=== PATIENT | male | born 2000 | race Asian ===

== ENCOUNTER 2022-02-02 08:58 | Emergency (ER) | payer OTHER ==
[~2022-02-02] VITALS: Ht 167.6 cm; Wt 63.0 kg
[2022-02-02] MEDS ORDERED: LIDOCAINE 2% MDV 20ML VIAL SC ONE (11:55)
[2022-02-02 12:30] VITALS: BP 110/67
== END 2022-02-02 12:31 | disposition home or self-care (01) ==
LOC: M ED 08:58
DX: S61.411A Laceration without foreign body of right hand, initial encounter (principal); W26.0XXA Contact with knife, initial encounter; F17.200 Nicotine dependence, unspecified, uncomplicated; Y92.009 Unspecified place in unspecified non-institutional (private) residence as the place of occurrence of the external cause; Y93.9 Activity, unspecified; Y99.9 Unspecified external cause status